=== PATIENT | male | born 1975 ===

== ENCOUNTER 2016-10-29 20:21 | Emergency (ER) | payer OTHER ==
[2016-10-29 21:06] VITALS: BP 137/89; PULSE 95; RESP 22; TEMP 99.3; O2SAT 95
--- NOTE | 2016-10-29 21:48 | C.PDOC ---
History Of Present Illness 41 year old male presents to the ED with complaints of a subjective fever, chills, cough, congestion, sore throat, and headache for the past 3 days. Patient states the cough has been worsening and has not taken any medication for the symptoms. Time Seen by Provider: 10/29/16 21:18 Chief Complaint (Nursing): Cough, Cold, Congestion History Per: Patient History/Exam Limitations: no limitations Onset/Duration Of Symptoms: Days Current Symptoms Are (Timing): Still Present Location Of Pain: Throat Associated Symptoms: Fever, Chills, Sore Throat, Cough. denies: Vomiting, Diarrhea Ear Symptoms: Bilateral: None Severity: Mild Past Medical History Reviewed: Historical Data, Nursing Documentation, Vital Signs Vital Signs: Last Vital Signs Temp 99.3 F 10/29/16 21:04 Pulse 95 H 10/29/16 21:04 Resp 22 10/29/16 21:04 BP 137/89 10/29/16 21:04 Pulse Ox 95 10/29/16 21:49 - Medical History PMH: Hypercholesterolemia Family History: States: Unknown Family Hx - Social History Hx Tobacco Use: No Hx Alcohol Use: No Hx Substance Use: No - Immunization History Hx Tetanus Toxoid Vaccination: No Hx Influenza Vaccination: No Hx Pneumococcal Vaccination: No Review Of Systems Except As Marked, All Systems Reviewed And Found Negative. Constitutional: Positive for: Fever, Chills Cardiovascular: Negative for: Chest Pain Respiratory: Positive for: Cough, Other (+Congestion). Negative for: Shortness of Breath Gastrointestinal: Negative for: Nausea, Vomiting Physical Exam - Physical Exam Appears: Non-toxic, No Acute Distress, Other (+Cough noted) Skin: Normal Color, Warm, Dry Head: Atraumatic, Normacephalic Eye(s): bilateral: Normal Inspection Ear(s): Bilateral: Normal Nose: Normal Oral Mucosa: Moist Throat: Normal, No Erythema, No Exudate Neck: Normal ROM, Supple Chest: Symmetrical, No Deformity Cardiovascular: Rhythm Regular Respiratory: Normal Breath Sounds, No Accessory Muscle Use, No Rales, No Rhonchi , No Wheezing Extremity: Normal ROM Neurological/Psych: Oriented x3, Normal Speech, Normal Cognition ED Course And Treatment O2 Sat by Pulse Oximetry: 95 (Room air) Pulse Ox Interpretation: Normal Progress Note: Patient treated with Motrin, Zithromax, and Prednisone. Disposition Counseled Patient/Family Regarding: Diagnosis, Need For Followup, Rx Given - Disposition Referrals: [facility] [Outside] [facility] [Outside] Disposition: HOME/ ROUTINE Disposition Time: 21:44 Condition: GOOD Additional Instructions: FOLLOW UP WITH PMD/CLINIC ON TUESDAY FOR RE-EVALUATION. IF SYMPTOMS GET WORSE OR ANY NEW CONCERNING SYMPTOMS DEVELOP RETURN TO ED. 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 - Scribe Statement The provider has reviewed the documentation as recorded by the Scribe Varinder Estes. All medical record entries made by the Scribe were at my direction and personally dictated by me. I have reviewed the chart and agree that the record accurately reflects my personal performance of the history, physical exam, medical decision making, and the department course for this patient. I have also personally directed, reviewed, and agree with the discharge instructions and disposition.
== END 2016-10-29 22:14 | disposition home or self-care (01) ==
LOC: C.ER 20:21
DX: J06.9 Acute upper respiratory infection, unspecified (principal)